=== PATIENT | male | born 1980 | race American Indian/Alaskan Native ===

== ENCOUNTER 2021-10-13 18:33 | Emergency (ER) | payer MEDICAID ==
--- NOTE | 2021-10-13 23:49 | Emergency Department Report ---
ED General Adult HPI - General Stated complaint: AMS/ETOH PUI?: No Time Seen by Provider: 10/13/21 20:28 Source: EMS, RN notes reviewed Mode of arrival: Stretcher Limitations: Altered Mental Status - History of Present Illness Initial comments: Please note that this patient was listed initially under the name "emergency, medical" given that staff members could not validate the patient's name or date of . The patient is a 41-year-old male who was brought in by EMS for the patient having been found lying on the ground of a gas station. EMS personnel was not readily available to provide HPI directly to this physician. However per charge nurse, Angelina's report, EMS states that bystanders saw the patient sleeping on the floor of a gas station and 911 was eventually called. EMS personnel states that they did not find any ID on the patient's being, and the patient had multiple letters in his pockets which had different names of different people. When asked concerning his name, the patient refused to provide further information. While here in the emergency department upon arrival, the patient when asked concerning his name "nope!" \\ Patient tells this provider that his name is Laura Barron and that his date of is 1980. He states he drinks alcohol and denies any pain. When asked further questions, the patient is observed to be talking to himself and mumbling but he is redirectable. When asked concerning his medical history, the patient does acknowledge she has a history of schizophrenia but will not pr ovide this provider with answers concerning whether not he takes this. Patient also will not answer questions concerning active SI or HI. -: unknown Severity scale (0 -10): 6 - Related Data Previous Rx's Medication Instructions Recorded Last Taken Type ARIPiprazole [Abilify TAB] 20 mg PO DAILY #30 tab 05/30/14 08/21/14 Rx 1 Benztropine [Cogentin] 2 mg PO BID #60 tab 05/30/14 08/21/14 Rx 1 risperiDONE [RisperDAL] 3 mg PO BID #60 tab 05/30/14 08/21/14 Rx 1 Allergies Allergy/AdvReac Type Severity Reaction Status Date / Time No Known Allergies Allergy Unverified 08/28/13 15:02 ED Review of Systems ROS: Stated complaint: AMS/ETOH Other details as noted in HPI Comment: All other systems reviewed and negative Constitutional: no symptoms reported. denies: see HPI, chills, diaphoresis, fever, malaise Eyes: denies: as per HPI, eye pain ENT: denies: as per HPI, ear pain, throat pain, dental pain, hearing loss Respiratory: denies: no symptoms reported, see HPI, cough, orthopnea, shortness of breath, SOB with exertion, SOB at rest, stridor Cardiovascular: denies: as per HPI, chest pain, palpitations, dyspnea on exertion, orthopnea, edema, syncope, paroxysmal nocturnal dyspnea, other Endocrine: denies: see HPI, excessive sweating, flushing, intolerance to cold, intolerance to heat, increased hunger, increased thirst, increased urine, unexplained weight gain, unexplained weight loss Gastrointestinal: denies: abdominal pain, nausea, vomiting, diarrhea, constipation, hematemesis, melena Genitourinary: denies: urgency, dysuria, frequency, hematuria, discharge, testi cular pain, testicular mass Musculoskeletal: denies: back pain, joint swelling, arthralgia Skin: denies: rash, lesions, change in color, change in hair/nails, pruritus Neurological: denies: headache, weakness, numbness, paresthesias, confusion, abnormal gait, vertigo, other Psychiatric: other (Unknown with respect to SI and HI). denies: anxiety, depression, auditory hallucinations, visual hallucinations, homicidal thoughts Hematological/Lymphatic: denies: easy bleeding, easy bruising, swollen glands ED Past Medical Hx - Past Medical History Hx Psychiatric Treatment: Yes (multiple IP treatments) Hx Asthma: Yes Additional medical history: scoliosis, - Social History Substance Use Type: Alcohol - Medications Home Medications: Home Medications Medication Instructions Recorded Confirmed Last Taken Type ARIPiprazole [Abilify TAB] 20 mg PO DAILY #30 tab 05/30/14 08/31/14 08/21/14 Rx 1 Benztropine [Cogentin] 2 mg PO BID #60 tab 05/30/14 08/31/14 08/21/14 Rx 1 risperiDONE [RisperDAL] 3 mg PO BID #60 tab 05/30/14 08/31/14 08/21/14 Rx 1 ED Physical Exam - General Limitations: No Limitations General appearance: alert, in no apparent distress, appears intoxicated - Head Head exam: Present: atraumatic, normocephalic, normal inspection - Eye Eye exam: Present: normal appearance, PERRL, EOMI Pupils: Present: normal accommodation - ENT ENT exam: Present: normal exam, mucous membranes moist, normal external ear exam - Neck Neck exam: Present: normal inspection, full ROM. Absent: tenderness, meningismus, lymphadenopathy, thyromegaly - Respiratory Respiratory exam: Present: normal lung sounds bilaterally - Cardiovascular Cardiovascular Exam: Present: regular rate, normal heart sounds - GI/Abdominal GI/Abdominal exam: Present: soft, other (No evidence of trauma, chest wall nontender, abdominal wall nontender, back and flank nontender, extremities nontender). Absent: distended, tenderness - Extremities Exam Extremities exam: Present: normal inspection, full ROM, normal capillary refill - Back Exam Back exam: Present: normal inspection, full ROM. Absent: tenderness, CVA tenderness (R), CVA tenderness (L), muscle spasm, paraspinal tenderness, vertebral tenderness, rash noted, other - Neurological Exam Neurological exam: Present: alert, oriented X3, normal gait, other - Psychiatric Psychiatric exam: Present: other (Patient will not answer this provider's question about SI or HI, he is noted to be intermittently mumbling to himself) - Skin Skin exam: Present: warm, dry, intact, normal color ED Medical Decision Making - Medical Decision Making 41-year-old male with documented history of schizophrenia brought in by EMS after he was found lying on the floor of a gas station. Vital signs stable. Patient was able to wake up and provide his first last name and date of . He was initially registered under the name "emergency, medical,; A [id number], M [id number], [id number]. Per registrations, the visit accounts cannot be merged and therefore it was advised that all documentation upon confirmation of the patient's name and date of , be performed under this current electronic health record. Patient found to be hypoglycemic with a sugar of 63. He was given food and juice by his nurse, Ashley. Repeat fingerstick was 78 and within normal limits. He has een medically cleared for evaluation by mental health. The patient's mental status remained appropriate here although he was intimately observed to be talking and mumbling to himself. Patient will not provide clarification concerning active SI and/or HI. And it is unclear what his baseline mental status is. 1013 form signed, mental health consult placed. Patient has been ordered for repeat serum alcohol level at 8 AM in the morning. UDS remains pending at the time of this dictation. Critical Care Time: No Critical care attestation.: If time is entered above; I have spent that time in minutes in the direct care of this critically ill patient, excluding procedure time. ED Disposition Clinical Impression: Schizophrenia, Alcohol abuse Disposition: 30 STILL A PATIENT Is pt being admited?: No Does the pt Need Aspirin: No Condition: Stable Referrals: NIC PUENTE MD [Primary Care Provider] - 3-5 Days
[2021-10-14] MEDS ORDERED: ZIPRASIDONE MESYLATE 20 MG VIAL IM ONE (02:44)
--- NOTE | 2021-10-14 02:46 | Event Note ---
Date: 10/14/21 got a call from the nurse that patient woke up and banging on the door and rodriguez in common room and about to wake every other patient in the room up. I went ahead and order Geodon 20 mg IM x 1 for symptomatic relief.
[2021-10-14] MEDS ORDERED: WATER FOR INJ Sterile (PF) 10 ML ONE (02:47)
[2021-10-14 10:13] VITALS: BP 116/73
--- NOTE | 2021-10-14 12:25 | Event Note ---
Date: 10/14/21 S: Patient reportedly became loud and agitated last night requiring Geodon. No other events reported O: Vital Signs - 8 hr 10/14/21 10:12 Temperature 98.5 F Pulse Rate 81 Respiratory 18 Rate Blood Pressure 116/73 [Right] O2 Sat by Pulse 97 Oximetry A: Schizophrenia P: Awaiting psych eval
[2021-10-14 14:06] LABS: Bilirubin,Urine NEG (Negative); Blood,Urine SM (Negative); Color,Urine Yellow (Yellow); Protein,Urine <15 mg/dL mg/dL (Negative)
[2021-10-14 14:07] LABS: RBC,Urine < 1.0 /HPF (0.0-6.0); WBC,Urine < 1.0 /HPF (0.0-6.0)
[2021-10-14 14:19] LABS: Amphetamine Screen,Urine Negative; Benzodiazepines Screen,Urine Negative; Cocaine Screen,Urine Negative; Methadone Screen,Urine Negative; Opiate Screen,Urine Negative
[2021-10-14 14:21] LABS: Cannabinoid Screen,Urine Positive
--- NOTE | 2021-10-14 16:02 | Consultation ---
History of Present Illness - Reason for Consult Consult date: 10/13/21 Reason for consult: MHE - History of Present Psychiatric Illness Patient seen in the ER today. Patient states that he is here because he "take my meds". Patient was able to communicate with me and answer questions. Patient states that he has been of his medications for a while. Patient denies any SI/HI/AVH at this time. Psych will sign off at this time and 1013 rescinded. Patient will be discharged with his prescription. PAST PSYCHIATRIC HISTORY: Diagnoses: Schizophrenia Suicide attempts or Self-harm behavior: Yes Prior psychiatric hospitalizations: Yes Substance Abuse history: Denies Previous psychiatric medications tried: Outpatient treatment: PAST MEDICAL HISTORY: Family Psychiatric History None reported or documented SOCIAL HISTORY Marital Status: Single Living Arrangements: Sister Employment Status: Unemployed Access to guns/weapons: Denies Education: 12th Grade History of Abuse: Legal History: REVIEW OF SYSTEMS Constitutional: Negative for weight loss ENT: Negative for stridor Respiratory: Negative for cough or hemoptysis All other systems reviewed and are negative Diagnoses: Schizophrenia RECOMMENDATIONS MEDICAL: Per primary team DELIRIUM PRECAUTIONS: Please re-orient patient frequently, keep lights on during the day, and minimize benzodiazepines and opiates as these medications could worsen patient's confusion. 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 DISPOSITION: Per primary team, no indication for acute inpatient psychiatric hospitalization at this time LEGAL STATUS: DC 1013 FOLLOW-UP: Will sign off Medications and Allergies Allergies Allergy/AdvReac Type Severity Reaction Status Date / Time No Known Allergies Allergy Unverified 08/28/13 15:02 Home Medications Medication Instructions Recorded Confirmed Last Taken Type ARIPiprazole [Abilify TAB] 20 mg PO DAILY #30 tab 05/30/14 10/14/21 08/21/14 Rx 1 Benztropine [Cogentin] 2 mg PO BID #60 tab 05/30/14 10/14/21 08/21/14 Rx 1 risperiDONE [RisperDAL] 3 mg PO BID #60 tab 05/30/14 10/14/21 08/21/14 Rx 1 Mental Status Exam - Vital signs Last Vital Signs Temp 98.5 F 10/14/21 10:12 Pulse 81 10/14/21 10:12 Resp 18 10/14/21 10:12 BP 116/73 10/14/21 10:12 Pulse Ox 97 10/14/21 15:21 Results All other labs normal.
== END 2021-10-14 17:52 | disposition home or self-care (01) ==
LOC: ED 18:33
DX: F20.9 Schizophrenia, unspecified (principal); F10.10 Alcohol abuse, uncomplicated; J45.909 Unspecified asthma, uncomplicated; Z20.822 Contact with and (suspected) exposure to COVID-19
CPT/HCPCS: 36415; 80307; 81001; 82962; 96372; 99284; J3486; U0003; 80320; G0480